=== PATIENT | female | born 1995 | race Hispanic/Latino ===

== ENCOUNTER 2024-06-13 16:26 | Emergency (ER) | payer SELFPAY ==
[~2024-06-13] VITALS: Ht 167.6 cm; Wt 68.0 kg
[2024-06-13 16:38] VITALS: PULSE 110; RESP 16; TEMP 98.8
[2024-06-13 17:14] LABS: BASOPHILS % 0.4 % (0.0-1.0); EOSINOPHILS # (AUTO) 0.1 (0.0-0.4); EOSINOPHILS % 0.5 % (0.0-6.0); HEMATOCRIT 40.8 % (34.2-44.1); HEMOGLOBIN 14.1 g/dL (12.0-16.0); LYMPHOCYTES # (AUTO) 2.4 (1.0-3.2); LYMPHOCYTES % 24.2 % (18.0-39.1); MEAN CORPUSCULAR HEMOGLOBIN 30.6 pg (28-32); MEAN CORPUSCULAR HGB CONC 34.6 g/dL (31-35); MEAN CORPUSCULAR VOLUME 88.5 fL (81-99); MONOCYTES # (AUTO) 0.6 (0.2-0.8); MONOCYTES % 5.8 % (4.4-11.3); NEUTROPHILS # (AUTO) 6.8 (2.1-6.9); NEUTROPHILS % 68.9 % (38.7-80.0); PLATELET COUNT 269 x10e3/uL (140-360); RED BLOOD COUNT 4.61 x10e6/uL (3.6-5.1); RED CELL DISTRIBUTION WIDTH 12.2 % (11.7-14.4); WHITE BLOOD COUNT 9.91 x10e3/uL (4.8-10.8)
[2024-06-13 17:16] LABS: CLARITY,URINE CLOUDY (CLEAR); COLOR,URINE YELLOW (YELLOW); GLUCOSE, URINE NEGATIVE (NEGATIVE); LEUKOCYTE ESTERASE ,URINE NEGATIVE (NEGATIVE); NITRITE,URINE NEGATIVE (NEGATIVE); PH,URINE 6 (5 - 7); PROTEIN,URINE DIPSTICK NEGATIVE (NEGATIVE)
[2024-06-13 17:17] LABS: BILIRUBIN,URINE NEGATIVE (NEGATIVE); KETONES,URINE NEGATIVE (NEGATIVE); URINE UROBILINOGEN 0.2 mg/dL (0.2 - 1)
[2024-06-13] MEDS ORDERED: KETOROLAC TROMETHAMINE 30 MG/ML VIAL IM STA (17:27)
[2024-06-13 17:28] LABS: EPITHELIAL CELLS,URINE FEW /LPF; MUCUS,URINE FEW; RBC,URINE >50 /HPF (0-5); RENAL EPITHELIAL CELLS,URINE FEW; TRANSITIONAL EPI CELLS,URINE FEW; WBC,URINE (MAN) 0-5 /HPF (0-5)
[2024-06-13] MEDS: SODIUM CHLORIDE 0.9% 1000ML 1,000 ML IV STA (17:28)
[2024-06-13 17:29] LABS: BACTERIA,URINE MODERATE /HPF
[2024-06-13] MEDS ORDERED: FENTANYL CITRATE/PF 100MCG/2 ML INJ IV PRN (17:30)
[2024-06-13 17:32] LABS: ALBUMIN 4.2 g/dL (3.5-5.0); ALBUMIN/GLOBULIN RATIO 1.1 (0.8-2.0); ANION GAP 15.4 mmol/L (8-16); BILIRUBIN,TOTAL 0.6 mg/dL (0.2-1.2); CREATININE, SERUM 0.74 mg/dL (0.57-1.11)
[2024-06-13 17:43] LABS: POTASSIUM 3.4 mmol/L (3.5-5.1)
[2024-06-13] MEDS: DICYCLOMINE HCL 20 MG/2 ML VIAL IM ONE (17:46)
[2024-06-13] MEDS ORDERED: IOPAMIDOL 370 MG/ML 100 ML INFUS..BTL INJ ONE (17:53)
[2024-06-13] MEDS: ONDANSETRON HCL INJ 2MG/ML 2ML 2 MG/ML VIAL IV PRN (18:29)
[2024-06-13] MEDS ORDERED: BACTRIM DS TAB1 EACH PO (18:44)
[2024-06-13] MEDS ORDERED: ONDANSETRON ODT4 MG PO (18:48)
[2024-06-13 19:03] VITALS: BP 124/78; PULSE 79; RESP 18; TEMP 97.2; O2SAT 98
== END 2024-06-13 19:04 | disposition home or self-care (01) ==
LOC: ER 17:06
DX: R10.31 Right lower quadrant pain (principal); N39.0 Urinary tract infection, site not specified
CPT/HCPCS: 36415; 74177; 80053; 81001; 83690; 84702; 85025; 99284; J0500; J2405; J7030; Q9967

== ENCOUNTER 2024-07-15 11:00 | Emergency (ER) | payer SELFPAY ==
[~2024-07-15] VITALS: Ht 167.6 cm; Wt 68.0 kg
[~2024-07-15 11:00] MED LIST: BACTRIM DS TAB1 EACH PO; ONDANSETRON ODT4 MG PO
[2024-07-15] MEDS: SODIUM CHLORIDE 0.9% 1000ML 1,000 ML IV ONE (11:31)
[2024-07-15] MEDS: KETOROLAC TROMETHAMINE 30 MG/ML VIAL IV STA (11:32)
[2024-07-15] MEDS: METOCLOPRAMIDE HCL 10 MG/2ML VIAL IV ONE (11:32)
[2024-07-15 11:34] VITALS: TEMP 98.1
[2024-07-15 11:38] LABS: BASOPHILS % 0.2 % (0.0-1.0); EOSINOPHILS % 0.5 % (0.0-6.0); HEMATOCRIT 41.8 % (34.2-44.1); HEMOGLOBIN 14.8 g/dL (12.0-16.0); LYMPHOCYTES # (AUTO) 0.9 (1.0-3.2); LYMPHOCYTES % 10.2 % (18.0-39.1); MEAN CORPUSCULAR HEMOGLOBIN 31.2 pg (28-32); MEAN CORPUSCULAR HGB CONC 35.4 g/dL (31-35); MEAN CORPUSCULAR VOLUME 88.2 fL (81-99); MONOCYTES # (AUTO) 0.4 (0.2-0.8); MONOCYTES % 4.1 % (4.4-11.3); NEUTROPHILS # (AUTO) 7.5 (2.1-6.9); NEUTROPHILS % 84.5 % (38.7-80.0); PLATELET COUNT 204 x10e3/uL (140-360); RED BLOOD COUNT 4.74 x10e6/uL (3.6-5.1); RED CELL DISTRIBUTION WIDTH 12.4 % (11.7-14.4); WHITE BLOOD COUNT 8.83 x10e3/uL (4.8-10.8)
[2024-07-15 11:49] LABS: BILIRUBIN,URINE NEGATIVE (NEGATIVE); CLARITY,URINE CLEAR (CLEAR); COLOR,URINE YELLOW (YELLOW); GLUCOSE, URINE NEGATIVE (NEGATIVE); KETONES,URINE NEGATIVE (NEGATIVE); LEUKOCYTE ESTERASE ,URINE NEGATIVE (NEGATIVE); NITRITE,URINE NEGATIVE (NEGATIVE); PH,URINE 6 (5 - 7); PROTEIN,URINE DIPSTICK 1+ (NEGATIVE); URINE UROBILINOGEN 0.2 mg/dL (0.2 - 1)
[2024-07-15 12:08] LABS: ALANINE AMINOTRANSFERASE 38 IU/L (0-55); ALBUMIN 4.1 g/dL (3.5-5.0); ALKALINE PHOSPHATASE 90 IU/L (40-150); ANION GAP 16.4 mmol/L (8-16); BILIRUBIN,TOTAL 1.4 mg/dL (0.2-1.2); BLOOD UREA NITROGEN 13 mg/dL (7-26); BUN/CREATININE RATIO 17 (6-25); CALCIUM 8.7 mg/dL (8.4-10.2); CARBON DIOXIDE 17 mmol/L (22-29); CHLORIDE 107 mmol/L (98-107); CREATININE, SERUM 0.75 mg/dL (0.57-1.11); EST GLOMERULAR FILTRATION RATE 111 ML/MIN (>=60); GLUCOSE 98 mg/dL (74-118); LIPASE 33 U/L (8-78); POTASSIUM 4.4 mmol/L (3.5-5.1); SODIUM 136 mmol/L (136-145); TOTAL PROTEIN 8.3 g/dL (6.5-8.1)
[2024-07-15 12:14] LABS: BACTERIA,URINE MODERATE /HPF; EPITHELIAL CELLS,URINE MODERATE /LPF; WBC,URINE (MAN) 21-50 /HPF (0-5)
[2024-07-15] MEDS ORDERED: IOPAMIDOL 370 MG/ML 100 ML INFUS..BTL INJ ONE (12:39)
[2024-07-15 14:32] VITALS: PULSE 81; RESP 18
[2024-07-15] MEDS ORDERED: REGLAN10 MG PO (16:05)
[2024-07-15 16:11] VITALS: BP 134/79; PULSE 72; RESP 18; TEMP 98.1; O2SAT 100
== END 2024-07-15 17:10 | disposition home or self-care (01) ==
LOC: ER 11:05
DX: R11.2 Nausea with vomiting, unspecified (principal); R19.7 Diarrhea, unspecified; R10.13 Epigastric pain
CPT/HCPCS: 36415; 74177; 80053; 81001; 83690; 84702; 85025; 99284; J1885; J2765; J7030; Q9967